=== PATIENT | male | born 1960 | race Caucasian/White ===

== ENCOUNTER 2016-04-30 18:26 | Emergency (ER) | payer MEDICAID ==
[2016-04-30 18:34] VITALS: TEMP 98.5; BMI 31.1
[2016-04-30] MEDS ORDERED: NS 1,000 ML IV ONE (18:43)
[2016-04-30] MEDS ORDERED: Albuterol/Ipratropium Neb 3 ML NEB NEB ONE (18:43)
[2016-04-30] MEDS ORDERED: METHYLPREDNISOLONE 125 MG/2 ML VIAL IV ONE (18:43)
--- NOTE | 2016-04-30 18:51 | EDPRACDOC ---
- General Information Chief Complaint: Generalized Weakness Stated Complaint: FEVER/ WEAKNESS Time Seen by Provider: 04/30/16 18:39 Mode Of Arrival: Car Home Medications: Home Medications Ipratropium/Albuterol Sulfate [Combivent Respimat] 2 puff INH RTQ6 06/21/15 Lisinopril [Zestril] 20 mg PO BID 06/21/15 Meloxicam 7.5 mg PO BID 06/21/15 Tiotropium Virgil [Spiriva] 18 mcg INH DAILY 06/21/15 Amoxicillin Trihydrate [Amoxicillin] 500 mg PO TID #30 tab 04/30/16 Budesonide/Formoterol Fumarate [Symbicort 160-4.5 Mcg Inhaler] 2 puff INH BID Furosemide [Lasix] 20 mg PO BID 04/30/16 Gabapentin [Neurontin] 600 mg PO BID 04/30/16 Hydrocodone Bit/Homatropine [Hycodan Syrup] 5 ml PO Q6 PRN #120 syrup 04/30/16 Methadone HCl [Methadose] 170 mg PO DAILY 04/30/16 Omeprazole 20 mg PO BID 04/30/16 Potassium Chloride [Klor-Con M20] 20 meq PO DAILY 04/30/16 Prednisone [Deltasone, Orasone] 40 mg PO DAILY 5 Days 04/30/16 Terbinafine HCl [Lamisil] 250 mg PO DAILY 04/30/16 Allergies/Adverse Reactions: Allergies Allergy/AdvReac Type Severity Reaction Status Date / Time Sulfa (Sulfonamide Allergy Anaphylaxis Verified 04/30/16 18:34 Antibiotics) * - History of Present Illness Onset: 2 WEEKS HPI: PT REPORTS NON-PROD COUGH, SOBR, WHEEZING, CONGESTION, FEVER, GENERALIZED WEAKNESS X 2 WEEKS, STATES HE HAS "INFECTION" IN HIS ARMS, STATES THAT HE HAS DEVELOPED MULTIPLE SORES ON HIS ARMS, UNSURE WHY, STATES FEVERS "OVER 100" OVER THE LAST 2 DAYS. Current Symptoms: Reports: Cough, Fever, Nasal Symptoms, Myalgia Shortness of Breath: Moderate Cough: Reports: Non-productive Rhinorrhea: Reports: Clear Ear Symptoms: Reports: None Fever Severity/Quality: Reports: greater than 100.5 F Oral Intake: Normal Urinary Output: Normal Relevant History of: Asthma, COPD Associated Signs & Symptoms:: Reports: Cough, Fever, Headache, Nasal Symptoms, Sore Throat, Other ED Past Medical History - History Reviewed Yes Nurses notes reviewed and agree except as marked - Patient Medical History Neurological History: Reports: Seizures, Migraine Cardiac History: Reports: Hypertension, Congestive Heart Failure, Heart Attack Respiratory History: Reports: Asthma, COPD, Emphysema GI/ History: Reports: Kidney Stones, Gastroesophageal Reflux Musculoskeletal History: Reports: Arthritis (Chronic neck and back pain.) Surgical History: Reports: Tonsillectomy/Adnoidectomy - Family Medical History Reports: Hypertension (father), Diabetes (Mother.), Cancer (father- colon), Stroke (Mother.), Cardiac Disorders (Father: sudden cardiac at 55yo. Mother: CHF.) - Social Medical History Smoking Status: Heavy tobacco smoker (5 or more cigarettes/day or daily pipe/ cigar) ETOH: None Substance Abuse: None EDM Review of Systems - Review of Systems Constitutional: Fever. negative: Chills Eyes: negative: Blurred Vision, Double Vision Ears: negative: Drainage Throat: negative: Pain Nose: Congestion. negative: Discharge Respiratory: Cough, Shortness of Breath, Wheezing Cardiovascular: Edema. negative: Chest Pain, Palpitations Gastrointestinal: negative: Diarrhea, Nausea, Pain, Vomiting Genitourinary: negative: Dysuria, Frequency Neurological: Headache. negative: Dizziness, Numbness, Weakness Musculoskeletal: No Symptoms Reported Integumentary: Wound Allergic/Immunologic: No Symptoms Reported - Physical Exam Constitutional: Alert (Awake), No apparent distress Oriented to: Time, Person, Place Last recorded Vital Signs: Last Vital Signs Temp 98.5 F 04/30/16 18:29 Pulse 92 04/30/16 18:29 Resp 18 04/30/16 18:29 BP 154/87 04/30/16 18:29 Pulse Ox 93 04/30/16 18:29 Oxygen Pulse Oxygen Saturation 93 O2 Device Room Air Oxygen Flow Rate Fraction of Inspired Oxygen ( FIO2) - HEENT Head: Normal ( normocephalic) Eye Exam: Normal (PERRL, EOMI, Sclera white) Oropharynx: Normal (Pharynx:Moist without exudate,Gums-no swelling) Tympanic Membrane: Normal ENT EAC: Normal TMJ: Normal Nose: No Symptoms Reported (septum midline) Neck: Normal (FROM, trachea at midline) - Respiratory/Cardiovascular Respiratory: Accessory Muscle Use, Wheezes Cardiovascular: Normal (RRR without murmur, gallop or rub) - GI Auscultation: Normal (NABS) Palpation: Normal (Soft,No rebound or guarding, non distended) Tenderness: Non tender Hinojosa's Sign: Negative - Musculoskeletal Back: Normal (Non-Tender) Extremities: Normal (Normal tone, Pulses 2+ No cyanosis or edema, FROM) - Integumentary Skin: Warm, Dry, Other (MULTIPLE SCABBED LESIONS TO BILATERAL FOREARMS, MILD ERYTHEMA AROUND WOUND EDGES, NO INDURATION, FLUCTUANCE, OR DRAINAGE, NO INCREASED TEMP, AREAS ARE TENDER TO TOUCH) Lymphatics: Normal (no adenopathy) - Neurologic Memory Impaired: Normal Motor Function: Normal (Normal tone, Pulses 2+ No cyanosis or edema, FROM) Cranial Nerve: Normal (CN II-X11 intact sensation, strength 5/5) Cerebellar: Normal Mood Description: Normal Perception: Normal - Differential Diagnosis Bronchitis, Pneumonia, Sinusitis, URI - Re-evaluation Re-evaluation 1 Re-evaluation Time: 19:49 ([facility] AFTER NEBS, OFFERED ADMISSION, PT REFUSES, STATES HE HAS TOO MANY ANIMALS TO TAKE CARE OF. ADVISED PT OF RISK OF LEAVING INCLUDING WORSENING SYMPTOMS, , PT VERBALIZES UNDERSTANDING, REFUSES ADMISSION, STATES HAS INHALERS AT HOME.) - Results 04/30/16 18:59 04/30/16 18:59 04/30/16 20:20 Laboratory Results - last 24 hr 04/30/16 04/30/16 04/30/16 18:50 18:59 18:59 WBC RBC Hgb Hct MCV MCH MCHC RDW Plt Count MPV Neut % (Auto) Lymph % (Auto) [place] % (Auto) Eos % (Auto) Baso % (Auto) Absolute Neuts (auto) Absolute Lymphs (auto) PT INR APTT Puncture Site Right brachial pH 7.350 pCO2 54.0 H pO2 50.0 L HCO3 29.8 H Total CO2 31.5 H Base Excess 2.9 H FiO2 % 21% Specimen Drawn By Dorri Sodium 138 Potassium 3.9 Chloride 101 Carbon Dioxide 28 Anion Gap 13 BUN 14 Creatinine 0.70 Estimated GFR (MDRD) > 60 Glucose 116 H Calculated Osmolality 268 L Lactic Acid 1.7 Calcium 8.3 L Corrected Calcium 9.0 Total Bilirubin 0.4 AST 22 ALT 34 Alkaline Phosphatase 82 Troponin I < 0.01 Total Protein 6.4 Albumin 3.3 L Lipase 43 04/30/16 04/30/16 18:59 18:59 WBC 17.0 H RBC 4.00 L Hgb 12.3 L Hct 37.6 L MCV 94 MCH 30.7 MCHC 32.7 L RDW 14.7 H Plt Count 244 MPV 8.5 Neut % (Auto) 76.2 H Lymph % (Auto) 15.2 L [place] % (Auto) 5.4 Eos % (Auto) 2.1 Baso % (Auto) 1.1 Absolute Neuts (auto) 12.92 H Absolute Lymphs (auto) 2.55 PT 10.4 INR 1.0 APTT 24.3 Puncture Site pH pCO2 pO2 HCO3 Total CO2 Base Excess FiO2 % Specimen Drawn By Sodium Potassium Chloride Carbon Dioxide Anion Gap BUN Creatinine Estimated GFR (MDRD) Glucose Calculated Osmolality Lactic Acid Calcium Corrected Calcium Total Bilirubin AST ALT Alkaline Phosphatase Troponin I Total Protein Albumin Lipase - EKG EKG #1 EKG Time: 18:51 -: Yes EKG interpreted by me Rate: bpm: 83 [place]: Normal Rhythm: NSR Block: None Hypertrophy: None ST: Normal Comparison: 06/21/15 (NO CHANGE) Decision Time to Discharge: 20:22 - Departure Disposition: Home Condition: Stable Final Diagnosis: COPD exacerbation, Tobacco abuse Cellulitis Qualifiers: Site of cellulitis: extremity Site of cellulitis of extremity: upper extremity Laterality: unspecified laterality Qualified Code(s): L03.119 - Cellulitis of unspecified part of limb Instructions: COPD (Chronic Obstructive Pulmonary Disease) (ED) Education/Counseling Given To: Patient Education/Counseling Given Regarding: Diagnosis, Treatment, Prognosis, Follow Up Referrals: Barb Méndez MD [Primary Care Provider] - One Week Prescriptions: Amoxicillin Trihydrate [Amoxicillin] 500 mg PO TID #30 tab Hydrocodone Bit/Homatropine [Hycodan Syrup] 5 ml PO Q6 PRN #120 syrup PRN Reason: Cough Prednisone [Deltasone, Orasone] 40 mg PO DAILY 5 Days Additional Instructions: Rest, drink plenty of fluids, use Tylenol every 4 hours and Motrin every 6 hours as needed for pain or fever, return to the ED for any worsening symptoms or concerns. PLEASE STOP SMOKING
[2016-04-30 18:56] LABS: ALLEN'S TEST PASS; BEb 2.9 (+/- 2); TCO2 31.5 MMOL/L (23-27)
[2016-04-30 18:57] LABS: ABG Draw Site Right Brachial
--- NOTE | 2016-04-30 19:15 | DIRPT ---
CLINICAL DATA: Cough, shortness of breath, wheezing, congestion, fever and weakness. EXAM: PORTABLE CHEST 1 VIEW COMPARISON: 06/21/2015 FINDINGS: Stable emphysematous lung disease. There is no evidence of pulmonary edema, consolidation, pneumothorax, nodule or pleural fluid. The heart size and mediastinal contours are normal. IMPRESSION: Stable emphysema. No active disease. Electronically Signed By: Nomi Dasilva M.D. On: 04/30/2016 19:12
[2016-04-30 19:18] LABS: AUTOMATED BASOPHIL 1.1 % (0-2); AUTOMATED EOSINOPHIL 2.1 % (0-5); AUTOMATED LYMPH 15.2 % (17-44); AUTOMATED MONOCYTE 5.4 % (3-10); AUTOMATED NEUTROPHIL 76.2 % (45-76); MPV 8.5 fL (7.4-10.4)
[2016-04-30 19:30] LABS: BLOOD UREA NITROGEN 14 MG/DL (9-20); CALCIUM 8.3 MG/DL (8.4-10.2); CALCULATED OSMOLALITY 268 MOs/Kg (270-290); CHLORIDE 101 mEq/L (98-107); GLUCOSE 116 MG/DL (70-99); SODIUM LEVEL 138 mEq/L (137-146); TOTAL PROTEIN 6.4 G/DL (6.3-8.2)
[2016-04-30 19:32] LABS: PARTIAL THROMB. TIME 24.3 SEC (22-35)
[2016-04-30] MEDS ORDERED: CEFTRIAXONE 1 GM in D5W 100 ML IV ONE (19:49)
[2016-04-30 21:26] VITALS: BP 145/62; PULSE 91
== END 2016-04-30 21:15 | disposition home or self-care (01) ==
LOC: ED 18:26
DX: L03.119 Cellulitis of unspecified part of limb (principal); R06.02 Shortness of breath; R05 Cough
CPT/HCPCS: 36415; 36600; 71010; 80053; 82803; 83605; 83690; 84484; 85025; 85610; 85730; 87040; 87077; 93005; 94640; 96361; 96365; 96375; 99282; J0696; J2930; J7060; J7620